=== PATIENT | male | born 1965 | race Caucasian/White ===

== ENCOUNTER 2017-05-31 07:27 | Emergency (ER) | payer SELFPAY ==
[2017-05-31 07:29] VITALS: BP 182/110; PULSE 87; RESP 16; TEMP 98.1; O2SAT 97
[2017-05-31 07:40] VITALS: BP 160/100
[2017-05-31] MEDS ORDERED: PERI0.126 SWISH-SPIT (07:53)
[2017-05-31] MEDS ORDERED: AMOX500C PO (07:53)
[2017-05-31] MEDS ORDERED: IBUP800T23 PO (07:53)
--- NOTE | 2017-05-31 08:03 | PD ---
HPI Chief Complaint: Oral / Dental Pain or Problem Time Seen by Provider: 07:51 Travel History International Travel<30 days: No Contact w/Intl Traveler<30days: No Traveled to known affect area: No History of Present Illness HPI 51-year-old male presents emergency Department with complaint of a lump to the palate of his mouth 3 days. Says he has history of dental abscesses. Says his teeth were knocked out and he has a full reconstruction coming up in August. Is requesting amoxicillin as he says this is worked the best for his abscesses in the past. Denies fever, vomiting. Denies throat pain, difficulty swallowing. Has been taking a Z-Nilo that he had left over with no improvement in symptoms. Also taking ibuprofen for symptom management. Symptoms are mild in severity. No known relieving or aggravating factors. Has no other medical complaints. No known allergies. No other modifying factors or associated signs and symptoms. PFSH Social History Tobacco Use: No Allergies-Medications (Allergen,Severity, Reaction): Coded Allergies: No Known Allergies (Unverified , 05/31/17) Reported Meds & Prescriptions Reported Meds & Active Scripts Active Deltasone (Prednisone) 20 Mg Tab 40 Mg PO DAILY 5 Days Peridex Liq (Chlorhexidine Gluconate (Mouth) Liq) 0.12% Soln 15 Ml SWISH-SPIT BID 10 Days Ibuprofen 800 Mg Tab 800 Mg PO Q6HR PRN Amoxicillin 500 Mg Cap 500 Mg PO BID 10 Days Review of Systems Except as stated in HPI: all other systems reviewed are Neg Physical Exam Narrative GENERAL: Well-nourished, well-developed male patient, in no acute distress; afebrile, nontoxic-appearing SKIN: Warm and dry. HEAD: Atraumatic. Normocephalic. No facial edema, erythema, tenderness on palpation. No lymphadenopathy. EYES: Pupils equal and round. No scleral icterus. No injection or drainage. ENT: Mucosa pink and moist. Airway patent. MOUTH: Mucous membranes moist, no lesions, tongue and gums appear normal. Poor dentition throughout. Partially edentulous. Multiple Front teeth are even with the gum line. There is a soft lump to the hard palate just behind tooth #9 ; without drainage Gingiva is without erythema, edema, drainage. No obvious abscess noted. NECK: Trachea midline. No lymphadenopathy. CARDIOVASCULAR: Regular rate. RESPIRATORY: No accessory muscle use. GASTROINTESTINAL: flat. MUSCULOSKELETAL: No obvious deformities. No clubbing. No cyanosis. No edema. NEUROLOGICAL: Awake and alert. Oriented 3. No obvious cranial nerve deficits. Motor grossly within normal limits. Normal speech. PSYCHIATRIC: Appropriate mood and affect; insight and judgment normal. Data Data Last Documented VS Vital Signs Date Time Temp Pulse Resp B/P (MAP) Pulse Ox O2 Delivery O2 Flow Rate FiO2 05/31/17 07:40 160/100 (120) 05/31/17 07:29 98.1 87 16 97 Orders Orders Ed Discharge Order (05/31/17 08:03) [facility] Medical Decision Making Medical Screen Exam Complete: Yes Emergency Medical Condition: Yes Medical Record Reviewed: Yes Differential Diagnosis Dental abscess, hard palate abscess, infected dental caries Narrative Course 51-year-old male physical exam consistent with an abscess to the hard palate just behind tooth #9. Patient is afebrile and nontoxic-appearing. No facial edema or erythema. He denies fever, vomiting. I spoke with Dr. Constantino, my attending physician, and she agrees with my treatment plan. Patient provided emergency dental information sheet for follow-up. Patient has history of dental abscesses and is requesting amoxicillin. Amoxicillin, Peridex mouth rinse, ibuprofen, Deltasone prescribed for home. Instructed patient to follow up with dentist in 1 day. Instructed patient to follow up with primary care provider. Patient verbalizes understanding and agreement with treatment plan. Patient is medically cleared and stable for discharge. Discussed reasons to return to the emergency department. Patient agrees with treatment plan. The patients vital signs are stable and the patient is stable for outpatient follow- up and treatment. Patient discharged home, stable and in no acute distress. Diagnosis Primary Impression: Hard palate abscess Referrals: Dentist Primary Care Physician Patient Instructions: Dental Abscess (ED), Dental Caries (ED), General Instructions, Toothache (ED) Additional Instructions: Complete full course of antibiotics Ibuprofen or Tylenol as directed and as needed to reduce pain and inflammation Use Peridex as directed for oral hygiene Warm or cool compresses to the affected area Follow-up with dentist Follow-up with primary care provider Return to emergency department immediately with worsening of symptoms Med/Other Pt SpecificInfo: Prescription(s) given Scripts Prednisone (Deltasone) 20 Mg Tab 40 MG PO DAILY for 5 Days, #10 TAB 0 Refills Prov: Candelaria Perez 05/31/17 Chlorhexidine Gluconate (Mouth) Liq (Peridex Liq) 0.12% Soln 15 ML SWISH-SPIT BID for 10 Days, #300 ML 0 Refills Prov: Candelaria Perez 05/31/17 Ibuprofen (Ibuprofen) 800 Mg Tab 800 MG PO Q6HR Y for PAIN, #30 TAB 0 Refills Prov: Candelaria Perez 05/31/17 Amoxicillin (Amoxicillin) 500 Mg Cap 500 MG PO BID for Infection for 10 Days, #20 CAP 0 Refills Prov: Candelaria Perez 05/31/17 Disposition: 01 DISCHARGE HOME Condition: Stable Candelaria Perez May 31, 2017 08:03
[2017-05-31] MEDS ORDERED: PRED-503 PO (08:04)
== END 2017-05-31 08:29 | disposition home or self-care (01) ==
LOC: NEPD 07:27
DX: K12.2 Cellulitis and abscess of mouth (principal)
CPT/HCPCS: 99284